=== PATIENT | male | born 1990 | race African-American/Black ===

== ENCOUNTER 2020-08-19 10:45 | Emergency (ER) | payer MEDICAID ==
[~2020-08-19] VITALS: Ht 188 cm; Wt 79.0 kg
[2020-08-19] MEDS ORDERED: SODIUM CHLORIDE 0.9% 1,000 ML IV ONE (11:18)
[2020-08-19] MEDS ORDERED: ONDANSETRON HCL 4MG/2ML INJ IV STA (11:18)
[2020-08-19 11:40] LABS: BASOPHILS % 0.5 % (0.0-2.0); EOSINOPHILS % 1.2 % (0.0-5.0); HEMATOCRIT. 46.3 % (42.0-52.0); LYMPHOCYTES % 13.8 % (20.0-50.0); MEAN CORPUSCULAR HEMOGLOBIN 27.5 pg (28.0-32.0); MEAN CORPUSCULAR VOLUME 84.8 fL (80.0-94.0); MEAN PLATELET VOLUME 9.6 fl (7.4-10.4); MONOCYTES % 3.1 % (2.0-8.0); NEUTROPHILS % 81.4 % (40.0-76.0); PLATELET 233 x1000/uL (130-400); RED BLOOD CELL COUNT 5.46 mill/uL (4.7-6.1); RED CELL DISTRIBUTION WIDTH 13.4 % (11.6-14.6)
[2020-08-19 11:43] LABS: CHLORIDE 102 mEq/L (98-107)
[2020-08-19 11:55] LABS: CLARITY URINE CLEAR (CLEAR); COLOR URINE YELLOW (YELLOW); KETONES URINE TRACE (NEGATIVE); LEUKOCYTE ESTERASE URINE 1+ (NEGATIVE); NITRITE URINE NEGATIVE (NEGATIVE); OCCULT BLOOD URINE NEGATIVE (NEGATIVE); PH URINE >=9.0 (4.5-8.0); PROTEIN URINE TRACE (NEGATIVE)
[2020-08-19 12:18] LABS: *AMPHETAMINES SCREEN URINE NEGATIVE (NEGATIVE); *BENZODIAZEPINES SCREEN URINE NEGATIVE (NEGATIVE); *COCAINE SCREEN URINE NEGATIVE (NEGATIVE); METHADONE URINE SCREEN NEGATIVE (NEGATIVE); OPIATES URINE SCREEN PRESUMTIVE POSITIVE (NEGATIVE)
[2020-08-19 12:19] LABS: *BARBITURATES SCREEN URINE NEGATIVE (NEGATIVE); CANNABINOID URINE SCREEN PRESUMTIVE POSITIVE (NEGATIVE); PHENCYCLIDINE URINE SCREEN NEGATIVE (NEGATIVE)
[2020-08-19] MEDS ORDERED: CEFTRIAXONE SODIUM 250 MG/VIAL IM NR (13:00)
[2020-08-19] MEDS ORDERED: AZITHROMYCIN 500 MG TABLET PO NR (13:00)
[2020-08-19] MEDS ORDERED: LIDOCAINE HCL/PF 1% 10 MG/ML 5ML VIAL IJ NR (13:00)
[2020-08-19 13:44] VITALS: BP 110/2
[2020-08-21 04:07] LABS: NEISSERIA GONORRHOEAE NAA Negative (Negative)
== END 2020-08-19 13:58 | disposition home or self-care (01) ==
LOC: ER 11:07
DX: F11.10 Opioid abuse, uncomplicated (principal); F12.10 Cannabis abuse, uncomplicated; R55 Syncope and collapse; N39.0 Urinary tract infection, site not specified; K21.9 Gastro-esophageal reflux disease without esophagitis; F17.210 Nicotine dependence, cigarettes, uncomplicated
CPT/HCPCS: 36415; 71045; 80053; 80305; 81003; 85025; 87491; 87591; 93005; 96361; 96372; 96374; 99285; J0696; J2405; J3490; J7030